=== PATIENT | male | born 1935 | race Two or more races ===

== ENCOUNTER 2020-09-01 21:15 | Emergency (ER) | payer MEDICARE, MEDICAID ==
[~2020-09-01] VITALS: Ht 152.4 cm; Wt 99.1 kg
--- NOTE | 2020-09-01 22:40 | NUR ---
VASCULAR AT BEDSIDE
[2020-09-01] MEDS ORDERED: CEPH-572 PO (22:58)
[2020-09-01] MEDS ORDERED: SULF1TAB49 PO (22:58)
[2020-09-01 23:33] VITALS: BP 162/71
== END 2020-09-01 23:34 | disposition home or self-care (01) ==
LOC: ER 21:17
DX: L03.116 Cellulitis of left lower limb (principal); R60.0 Localized edema
CPT/HCPCS: 36415; 84145; 93971; 99284